=== PATIENT | female | born 2000 | race Caucasian/White ===

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

== ENCOUNTER 2021-11-11 02:49 | Emergency (ER) | payer MEDICAID ==
[~2021-11-11] VITALS: Ht 162.6 cm; Wt 75.0 kg
[~2021-11-11 02:49] MED LIST: FERR325T6 MT; IBUP-2029 MT; MULT-622 MT
[2021-11-11] MEDS ORDERED: SODIUM CHLORIDE 0.9% 1000ML BAG (SEPSIS BOLUS) IV ONE (03:30)
[2021-11-11] MEDS ORDERED: VANCOMYCIN 1G PREMIX 200 ML IV SCH (03:45)
[2021-11-11] MEDS ORDERED: IBUPROFEN 600MG TABLET PO ONE (03:45)
[2021-11-11] MEDS ORDERED: PIPERACILLIN/TAZ 3.375G PREMIX 50 ML IV NR (03:45)
[2021-11-11] MEDS ORDERED: PIPERACILLIN/TAZOBACTAM 3.375GM/50ML PREMIX IV ONE (03:45)
[2021-11-11 05:03] LABS: HEMATOCRIT. 35.4 % (36.0-48.0); HEMOGLOBIN. 11.4 g/dL (12.0-16.0); MEAN CORPUSCULAR HEMOGLOBIN 26.2 pg (28.0-32.0); MEAN CORPUSCULAR VOLUME 81.5 fL (81.0-99.0); PLATELET 348 x1000/uL (130-400); RED BLOOD CELL COUNT 4.34 mill/uL (4.2-5.4); RED CELL DISTRIBUTION WIDTH 13.1 % (11.6-14.6)
[2021-11-11 05:10] LABS: CHLORIDE 105 mEq/L (98-107)
[2021-11-11 05:19] LABS: ETHANOL BLOOD < 10 mg/dL
[2021-11-11 05:54] LABS: PLATELET ESTIMATE NORMAL
[2021-11-11 06:21] VITALS: BP 115/62
== END 2021-11-11 06:52 | disposition home or self-care (01) ==
LOC: ER 02:49
DX: J06.9 Acute upper respiratory infection, unspecified (principal); R50.9 Fever, unspecified; R94.31 Abnormal electrocardiogram [ECG] [EKG]; Z20.822 Contact with and (suspected) exposure to COVID-19
CPT/HCPCS: 36415; 71045; 80053; 80320; 83605; 84145; 85025; 87040; 87426; 87804; 93005; 96365; 99285; C9803; J2543; J7030; G0480